=== PATIENT | female | born 1970 | race African-American/Black ===

== ENCOUNTER → 2021-04-23 12:48 | Outpatient (CLI) | payer SELFPAY ==
--- NOTE | 2021-04-23 12:57 | ECHOD_ITS ---
Reason For Study: Chest pain/tightness Procedure This was a 2D Doppler, Color Flow transthoracic echocardiogram. The exam was of adequate technical quality. Exam performed in department. Left Ventricle Normal LV size. Left ventricular systolic function is normal. The estimated ejection fraction is 60 %. No evidence for diastolic dysfunction. No regional wall motion abnormalities noted. Right Ventricle Normal RV size. Normal systolic function. Atria Normal left atrium. Normal right atrium. No doppler evidence for ASD. Mitral Valve There is no mitral annular calcification. Normal mitral valve. Trivial mitral valve insufficiency. Tricuspid Valve Normal tricuspid valve. Trivial tricuspid valve insufficiency. Unable to estimate RV systolic pressure due to insufficient tricuspid regurgitant envelope. Aortic Valve Trisinus/trileaflet aortic valve. Normal aortic valve. Trivial aortic valve insufficiency. Pulmonic Valve The pulmonic valve is not well visualized. Trivial pulmonic valve insufficiency. Great Vessels Normal sized aortic root. Pericardium/Pleural No pericardial effusion. MMode/2D Measurements & Calculations LVIDd: 3.8 cm IVSd: 1.1 cm Ao root diam: 2.8 cm LVIDs: 2.3 cm LVPWd: 1.1 cm RVDd: 2.6 cm FS: 39.2 % LAV(MOD-bp): 25.0 ml LVAd ap4: 23.0 cm2 LVAd ap2: 22.2 cm2 LAV(MOD-bp) Indexed: 12.0 ml/m2 LVLd ap4: 7.4 cm LVLd ap2: 7.6 cm LAV(MOD-sp2): 24.4 ml EDV(MOD-sp4): 57.8 ml EDV(MOD-sp2): 54.8 ml LAV(MOD-sp4): 24.3 ml EDV(sp4-el): 60.2 ml EDV(sp2-el): 54.7 ml LVAs ap4: 14.1 cm2 LVAs ap2: 12.4 cm2 LVLs ap4: 6.4 cm LVLs ap2: 6.9 cm ESV(MOD-sp4): 26.3 ml ESV(MOD-sp2): 18.5 ml ESV(sp4-el): 26.3 ml ESV(sp2-el): 18.7 ml EF(MOD-sp4): 54.6 % EF(MOD-sp2): 66.3 % EF(sp4-el): 56.4 % SV(MOD-sp4): 31.5 ml SV(MOD-sp2): 36.4 ml SV(sp4-el): 34.0 ml LA dimension(2D): 3.3 cm LA A4 area: 12.0 cm2 RA A4 area: 12.2 cm2 Doppler Measurements & Calculations MV E max augustine: 89.9 cm/sec Lat Peak E' Augustine: 10.3 cm/sec Med Peak E' Augustine: 9.2 cm/sec MV A max augustine: 64.2 cm/sec E/E' lat: 8.7 E/E' med: 9.7 MV E/A: 1.4 Ao V2 max: 135.1 cm/sec LV V1 max: 106.4 cm/sec PA V2 max: 72.3 cm/sec Ao max P.3 mmHg LV V1 max P.5 mmHg ECHO/Echo Complete Interpretation Summary Left ventricular systolic function is normal. The estimated ejection fraction is 60 %. Trivial mitral valve insufficiency. Trivial tricuspid valve insufficiency. Trivial aortic valve insufficiency. Trivial pulmonic valve insufficiency. Unable to estimate RV systolic pressure due to insufficient tricuspid regurgita nt envelope. No evidence for diastolic dysfunction. Ordering Physician: TOYA HICKS Referring Physician: TOYA HICKS Performed By: Dory Swenson RDCS
== END ==
DX: R07.89 Other chest pain (principal)
CPT/HCPCS: 93306

== ENCOUNTER → 2021-04-28 06:12 | Outpatient (CLI) | payer OTHER, SELFPAY ==
--- NOTE | 2021-04-28 07:49 | STRESSREP_ITS ---
Stress Test Report Date: 04-28-2021 Procedure: Exercise tolerance test/imaging study Indications: Chest pain; shortness of breath/dyspnea on exertion Consent: Per the patient Procedure: The patient exercised on a Gregory protocol for 4 minutes completing Stage I and 1 minute of Stage II achieving a peak heart rate of 155 bpm (92% predicted maximal heart rate) with a peak blood pressure 160/78 mmHg and a peak MET capacity of 7 METs. The baseline ECG demonstrated normal sinus rhythm; nonspecific T wave abnormality. The peak exercise ECG demonstrated significant somatic/motion artifact with the early recovery ECG demonstrating no obvious ECG changes. There were no cardiac dysrhythmias pretest, during exercise, or recovery. The functional capacity was considered decreased. There was no complaint of chest discomfort during exercise or recovery. The examination was discontinued secondary to dyspnea. Impression: 1. Technically adequate (percent predicted maximal heart rate greater than 85%) exercise tolerance test 2. Peak exercise ECG significant somatic/motion artifact with no obvious ECG changes 3. There were no cardiac dysrhythmias pretest, during exercise, or recovery 4. Nuclear images pending Myocardial perfusion imaging study: Technique: The patient was injected with 15.0 mCi of technetium 99m Cardiolite and subsequently rest SPECT Cardiolite nuclear imaging was obtained in the horizontal long, vertical long, and short axis views. The patient exercised on a Gregory protocol for 4 minutes completing Stage I and 1 minute of Stage II achieving a peak heart rate of 155 bpm (92% predicted maximal heart rate) with a peak blood pressure 160/78 mmHg and a peak MET capacity of 7 METs. The patient was injected with 45.0 mCi of technetium 99m Cardiolite and subsequently stress SPECT Cardiolite nuclear imaging was obtained in the horizontal long, vertical long, and short axis views. A gated Cardiolite study at peak stress was obtained. Interpretation: Rest and stress SPECT Cardiolite nuclear imaging status post realignment, normalization, and attenuation correction, demonstrates the appearance of relative uniform tracer uptake and myocardial perfusion appearing within normal limits. There is end systolic thickening and brightening. The gated Cardiolite study demonstrates myocardial thickening and inward wall motion. The reported LVEF is 73%. Impression: 1. Rest and stress SPECT Cardiolite nuclear imaging demonstrate relative uniform tracer uptake and myocardial perfusion appearing within normal limits. 2. The gated Cardiolite study reports an LVEF of 73%. This note was generated with [employer] software. It may contain incorrect words, spelling, and punctuation that were not noted in checking the note before signing.
== END ==
DX: R07.89 Other chest pain (principal)
CPT/HCPCS: 78452; 93017; A9500; A4216